=== PATIENT | female | born 1970 | race Caucasian/White ===

== ENCOUNTER 2018-01-08 21:59 | Inpatient (IN) | payer OTHER ==
[~2018-01-08] VITALS: Ht 157.5 cm; Wt 69.2 kg
[2018-01-08 22:01] VITALS: BP 152/79
[2018-01-08] MEDS ORDERED: EFFEXOR 5050 MG/1 T1 PO (22:10)
[2018-01-08] MEDS ORDERED: NEXIUM40 MG PO (22:11)
[2018-01-08] MEDS ORDERED: SYNTHROID50 MCG PO (22:11)
[2018-01-08 22:31] LABS: ABSOLUTE NEUTROPHILS 3.4 thou/uL (1.4-8.2); BASOPHILS 0.5 % (0.0-2.0); EOSINOPHILS 1.6 % (0.0-3.0); HEMATOCRIT 40.5 % (37.0-47.0); HEMOGLOBIN 13.9 gm/dL (12.0-15.0); LYMPHOCYTES 40.9 % (24.0-44.0); MCH 31.4 pg (26.0-34.0); MCHC 34.4 g/dL (28.0-37.0); MCV 91.4 fL (80.0-100.0); MONOCYTES 5.5 % (1.0-8.0); PLATELET COUNT 168 thou/uL (150-400); POLYS 51.5 % (36.0-66.0); RBC 4.44 mil/uL (4.20-5.00); RDW 13.5 % (10.5-14.5); WBC 6.5 thou/uL (4.0-11.0)
[2018-01-08 22:31] LABS: URINE BILIRUBIN NEGATIVE (Negative); URINE BLOOD NEGATIVE (Negative); URINE CLARITY CLEAR; URINE COLOR YELLOW; URINE GLUCOSE-RANDOM* NEGATIVE (Negative); URINE KETONES NEGATIVE (Negative); URINE LEUKOCYTES-REFLEX NEGATIVE (Negative); URINE NITRITE-REFLEX NEGATIVE (Negative); URINE PROTEIN (DIPSTICK) NEGATIVE (Negative); URINE UROBILINOGEN 0.2 E.U./dl (0.2-1.0)
[2018-01-08 22:49] LABS: CALCIUM 9.6 mg/dL (8.5-10.1); POTASSIUM 3.4 mmol/L (3.5-5.1)
[2018-01-08 23:47] VITALS: BP 125/81
[2018-01-09 00:11] VITALS: BP 121/71
[2018-01-09 05:20] VITALS: BP 103/74
[2018-01-09 08:00] VITALS: BP 106/66
[2018-01-09] MEDS ORDERED: HYDROCODON-ACE1 EAC8 PO (10:25)
[2018-01-09] MEDS ORDERED: FLOMAX0.4 MG PO (10:25)
[2018-01-09 10:48] VITALS: BP 106/66
== END 2018-01-09 11:51 | disposition home or self-care (01) | DRG 694 ==
LOC: ER 21:59 → 4W 23:33 → EROBS 23:33 → 4W 23:59
PROVIDERS: Emergency Medicine
DX: N21.1 Calculus in urethra (principal); N20.2 Calculus of kidney with calculus of ureter; G43.909 Migraine, unspecified, not intractable, without status migrainosus; G44.89 Other headache syndrome; F17.210 Nicotine dependence, cigarettes, uncomplicated; K21.9 Gastro-esophageal reflux disease without esophagitis; E03.9 Hypothyroidism, unspecified; Q62.5 Duplication of ureter; Z79.899 Other long term (current) drug therapy; Z90.710 Acquired absence of both cervix and uterus; Q63.0 Accessory kidney; Z28.21 Immunization not carried out because of patient refusal
CPT/HCPCS: 10040